=== PATIENT | female | born 1965 | race Two or more races ===

== ENCOUNTER 2020-08-31 15:50 | Emergency (ER) | payer MEDICAID ==
[~2020-08-31] VITALS: Ht 160 cm; Wt 59.0 kg
[2020-08-31 18:29] LABS: BASOPHILS % 0.4 % (0.0-2.0); EOSINOPHILS % 0.9 % (0.0-5.0); HEMATOCRIT. 45.7 % (36.0-48.0); HEMOGLOBIN. 15.8 g/dL (12.0-16.0); LYMPHOCYTES % 23.1 % (20.0-50.0); MEAN CORPUSCULAR HEMOGLOBIN 29.3 pg (28.0-32.0); MEAN CORPUSCULAR VOLUME 84.9 fL (81.0-99.0); MEAN PLATELET VOLUME 10.3 fl (7.4-10.4); MONOCYTES % 4.2 % (2.0-8.0); NEUTROPHILS % 71.4 % (40.0-76.0); PLATELET 153 x1000/uL (130-400); RED BLOOD CELL COUNT 5.39 mill/uL (4.2-5.4); RED CELL DISTRIBUTION WIDTH 13.2 % (11.6-14.6)
[2020-08-31 18:38] LABS: INR 1.1; PROTHROMBIN TIME 11.3 sec (9.6-11.0)
[2020-08-31 18:39] LABS: CLARITY URINE CLEAR (CLEAR); COLOR URINE YELLOW (YELLOW); KETONES URINE NEGATIVE (NEGATIVE); LEUKOCYTE ESTERASE URINE 1+ (NEGATIVE); NITRITE URINE NEGATIVE (NEGATIVE); OCCULT BLOOD URINE NEGATIVE (NEGATIVE); PROTEIN URINE NEGATIVE (NEGATIVE)
[2020-08-31 18:40] LABS: CHLORIDE 101 mEq/L (98-107)
[2020-08-31] MEDS ORDERED: IOHEXOL-300 100 ML BOTTLE ONE (22:16)
[2020-09-01 00:36] VITALS: BP 119/74
== END 2020-09-01 00:37 | disposition home or self-care (01) ==
LOC: ER 15:50
DX: M79.10 Myalgia, unspecified site (principal); J11.1 Influenza due to unidentified influenza virus with other respiratory manifestations
CPT/HCPCS: 36415; 74177; 76705; 80053; 81003; 83690; 84484; 85025; 85610; 93005; 99285; Q9967

== ENCOUNTER 2024-03-15 19:58 | Emergency (ER) | payer MEDICAID ==
[~2024-03-15] VITALS: Ht 149.9 cm; Wt 48.7 kg
[2024-03-15 20:59] VITALS: O2SAT 98
[2024-03-15 21:28] LABS: BASOPHILS % 0.9 % (0.0-2.0); EOSINOPHILS % 5.5 % (0.0-5.0); HEMATOCRIT. 41.1 % (36.0-48.0); HEMOGLOBIN. 14.4 g/dL (12.0-16.0); LYMPHOCYTES % 34.1 % (20.0-50.0); MEAN CORPUSCULAR HEMOGLOBIN 29.4 pg (28.0-32.0); MEAN PLATELET VOLUME 9.8 fl (7.4-10.4); MONOCYTES % 5.5 % (2.0-8.0); PLATELET 81 x1000/uL (130-400); RED CELL DISTRIBUTION WIDTH 14.1 % (11.6-14.6); WHITE BLOOD COUNT 5.2 x1000/uL (4.5-11.0)
[2024-03-15 21:34] LABS: CHLORIDE 108 mEq/L (98-107); POTASSIUM 4.2 mEq/L (3.5-5.1); SODIUM 140 mEq/L (136-145)
[2024-03-15 21:35] LABS: CALCIUM 9.1 mg/dL (8.7-10.4); CARBON DIOXIDE 25 mEq/L (21-32)
[2024-03-15 21:40] LABS: CREATININE 0.6 mg/dL (0.6-1.0); GLUCOSE 94 mg/dL (70-105); UREA NITROGEN BLOOD 6 mg/dL (9-23)
[2024-03-15 21:42] LABS: ALANINE AMINOTRANSFERASE 75 IU/L (10-49); ALBUMIN 4.4 g/dL (3.2-4.8); ASPARTATE AMINOTRANSFERASE 150 IU/L (<34); BILIRUBIN TOTAL 1.1 mg/dL (0.1-1.0)
[2024-03-15 21:43] LABS: PROTEIN TOTAL 7.6 g/dL (6.0-8.3)
[2024-03-15 21:56] LABS: CLARITY URINE CLEAR (CLEAR); COLOR URINE YELLOW (YELLOW); GLUCOSE URINE NEGATIVE (NEGATIVE); KETONES URINE NEGATIVE (NEGATIVE); LEUKOCYTE ESTERASE URINE NEGATIVE (NEGATIVE); NITRITE URINE NEGATIVE (NEGATIVE); OCCULT BLOOD URINE NEGATIVE (NEGATIVE); PH URINE 7.5 (4.5-8.0); PROTEIN URINE NEGATIVE (NEGATIVE); SPECIFIC GRAVITY URINE 1.005 (1.005-1.030)
[2024-03-15 23:07] VITALS: TEMP 98
[2024-03-16] MEDS: KETOROLAC 15MG/ML VIAL IV ONE (00:17)
[2024-03-16] MEDS: ONDANSETRON HCL 4MG/2ML INJ IV ONE (00:17)
[2024-03-16] MEDS: SODIUM CHLORIDE 0.9% 1,000 ML IV ONE (00:19)
[2024-03-16] MEDS: IOHEXOL-300 100 ML BOTTLE ONE (02:40)
[2024-03-16] MEDS ORDERED: MAG355OR21 MT (03:25)
[2024-03-16] MEDS ORDERED: ACET-2708 MT (03:25)
[2024-03-16] MEDS ORDERED: ONDA4TAB50 MT (03:25)
[2024-03-16 03:28] LABS: AMYLASE 77 IU/L (30-118)
[2024-03-16 03:40] VITALS: BP 135/74; PULSE 64; RESP 18
== END 2024-03-16 03:40 | disposition home or self-care (01) ==
LOC: ER 19:58
DX: R10.84 Generalized abdominal pain (principal); R19.7 Diarrhea, unspecified; K86.2 Cyst of pancreas
CPT/HCPCS: 80053; 81003; 81025; 83690; 85025; 36415 ×2; 99285; 80320; 82150; 74177; 96361; 96374; 96375; Q9967; J1885; J2405; J7030; G0480

== ENCOUNTER 2024-04-03 18:12 | Emergency (ER) | payer MEDICAID ==
[~2024-04-03] VITALS: Ht 152.4 cm; Wt 60.0 kg
[~2024-04-03 18:12] MED LIST: ACET-2708 MT; MAG355OR21 MT; ONDA4TAB50 MT
[2024-04-03 18:15] VITALS: O2SAT 99
[2024-04-03 19:30] LABS: BASOPHILS % 0.7 % (0.0-2.0); EOSINOPHILS % 5.7 % (0.0-5.0); HEMATOCRIT. 40.3 % (36.0-48.0); HEMOGLOBIN. 13.9 g/dL (12.0-16.0); LYMPHOCYTES % 28.6 % (20.0-50.0); MEAN CORPUSCULAR HEMOGLOBIN 29.6 pg (28.0-32.0); MEAN CORPUSCULAR HGB CONC 34.4 g/dL (31.0-37.0); MEAN CORPUSCULAR VOLUME 85.9 fL (81.0-99.0); MEAN PLATELET VOLUME 10.2 fl (7.4-10.4); MONOCYTES % 5.2 % (2.0-8.0); NEUTROPHILS % 59.8 % (40.0-76.0); PLATELET 71 x1000/uL (130-400); RED BLOOD CELL COUNT 4.68 mill/uL (4.2-5.4); RED CELL DISTRIBUTION WIDTH 14.5 % (11.6-14.6); WHITE BLOOD COUNT 4.5 x1000/uL (4.5-11.0)
[2024-04-03 19:38] LABS: CARBON DIOXIDE 25 mEq/L (21-32); CHLORIDE 110 mEq/L (98-107); POTASSIUM 3.8 mEq/L (3.5-5.1); SODIUM 139 mEq/L (136-145)
[2024-04-03 19:43] LABS: CREATININE 0.6 mg/dL (0.6-1.0)
[2024-04-03 19:44] LABS: GLUCOSE 114 mg/dL (70-105); UREA NITROGEN BLOOD 10 mg/dL (9-23)
[2024-04-03 19:45] LABS: ALANINE AMINOTRANSFERASE 54 IU/L (10-49); ALBUMIN 4.1 g/dL (3.2-4.8); ASPARTATE AMINOTRANSFERASE 108 IU/L (<34)
[2024-04-03 19:46] LABS: BILIRUBIN DIRECT 0.4 mg/dL (<=3.0); PROTEIN TOTAL 7.4 g/dL (6.0-8.3)
[2024-04-03 19:58] LABS: HCG SCREEN NEGATIVE
[2024-04-03 23:02] LABS: CLARITY URINE CLEAR (CLEAR); COLOR URINE YELLOW (YELLOW); GLUCOSE URINE NEGATIVE (NEGATIVE); KETONES URINE NEGATIVE (NEGATIVE); LEUKOCYTE ESTERASE URINE NEGATIVE (NEGATIVE); NITRITE URINE NEGATIVE (NEGATIVE); OCCULT BLOOD URINE NEGATIVE (NEGATIVE); PROTEIN URINE NEGATIVE (NEGATIVE); SPECIFIC GRAVITY URINE 1.007 (1.005-1.030)
[2024-04-03] MEDS: MAGNESIUM/ALUMINUM HYDROXIDE/SIMETHICONE 30ML UDC PO ONE (23:59)
[2024-04-03] MEDS: FAMOTIDINE 20MG TABLET PO ONE (23:59)
[2024-04-04] VITALS: BP 155/98; PULSE 69; RESP 14; TEMP 98.3
[2024-04-04] MEDS ORDERED: MAG355OR21 MT (02:06)
== END 2024-04-04 02:43 | disposition home or self-care (01) ==
LOC: ER 18:12
DX: K80.20 Calculus of gallbladder without cholecystitis without obstruction (principal)
CPT/HCPCS: 36415; 71045; 76705; 80048; 80076; 81003; 84703; 85025; 99284